=== PATIENT | male | born 1960 | race Caucasian/White ===

== ENCOUNTER 2018-06-21 20:28 | Emergency (ER) | payer MEDICAID ==
[~2018-06-21] VITALS: Ht 188 cm; Wt 96.6 kg
[2018-06-21 20:40] VITALS: Ht 188 cm; Wt 96.6 kg
[2018-06-21 22:28] VITALS: BP 152/91
== END 2018-06-21 22:28 | disposition home or self-care (01) ==
LOC: ED 20:28
DX: T78.1XXA Other adverse food reactions, not elsewhere classified, initial encounter (principal); I10 Essential (primary) hypertension; Z91.010 Allergy to peanuts; Z91.013 Allergy to seafood; Z88.5 Allergy status to narcotic agent; X58.XXXA Exposure to other specified factors, initial encounter
CPT/HCPCS: J1100